=== PATIENT | female | born 1980 | race Caucasian/White ===

== ENCOUNTER 2017-02-08 22:15 | Inpatient (IN) | END 2017-02-15 13:21 | disposition home or self-care (01) | DRG 391 ==

== ENCOUNTER 2017-03-07 14:03 | Inpatient (IN) | END 2017-03-11 16:30 | disposition home health service (06) | DRG 436 ==

== ENCOUNTER 2017-03-13 19:22 | Inpatient (IN) | END 2017-03-17 15:15 | disposition hospice, home (50) | DRG 811 ==